=== PATIENT | female | born 1995 | race Caucasian/White ===

== ENCOUNTER 2017-04-03 18:58 | Emergency (ER) | payer SELFPAY ==
[2017-04-03] MEDS ORDERED: HYDROCODONE/ACETAMINOPHEN 5-325 MG TABLET PO ONE (19:47)
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
[2017-04-03] MEDS ORDERED: ONDANSETRON 4 MG TAB.RAPDIS PO ONE (19:51)
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
[2017-04-03] MEDS ORDERED: HYDROCODONE/ACETAMINOPHEN 5-325 MG (6 TAB/ER DISP) PO PRN (20:44)
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
[2017-04-03 21:15] VITALS: BP 117/74
== END 2017-04-03 21:13 | disposition home or self-care (01) ==
LOC: ER 18:58
DX: S09.90XA Unspecified injury of head, initial encounter (principal); Y04.2XXA Assault by strike against or bumped into by another person, initial encounter; R11.2 Nausea with vomiting, unspecified
CPT/HCPCS: 99284; 70450; S0119

== ENCOUNTER 2018-03-17 23:04 | Emergency (ER) | payer SELFPAY ==
[2018-03-18] MEDS ORDERED: HYDROXYZINE PAMOATE 25 MG CAPSULE PO ONE (01:27)
--- NOTE | 2018-03-18 01:29 | ER Document Report ---
HPI - HPI Time Seen by Provider: 03/18/18 01:20 Pain Level: 4 Context: Patient is a 22-year-old female who presents to the emergency department with a chief complaint of not being able to breathe, and feeling nauseous. She states that she does have anxiety and that she is not on any of her anxiety medications. She was taking Xanax and Vistaril, but has not taken them recently because she does not have insurance. She states that this does feel like her normal anxiety attack. - REPRODUCTIVE Reproductive: DENIES: : Past Medical History - Social History Smoking Status: Never Smoker Frequency of alcohol use: None Drug Abuse: None Lives with: Family Family History: Reviewed & Not Pertinent - Past Medical History Cardiac Medical History: Denies: Hx Coronary Artery Disease, Hx Heart Attack, Hx Hypertension Pulmonary Medical History: Denies: Hx Asthma, Hx Bronchitis, Hx COPD, Hx Pneumonia Neurological Medical History: Denies: Hx Cerebrovascular Accident, Hx Seizures Renal/ Medical History: Denies: Hx Peritoneal Dialysis Musculoskeletal Medical History: Denies Hx Arthritis Psychiatric Medical History: Reports: Hx Anxiety, Hx Attention Deficit Hyperactivity Disorder, Hx Bipolar Disorder, Hx Depression Past Surgical History: Reports: Hx Oral Surgery - Third molars have been removed. Denies: Hx Pacemaker - Immunizations Immunizations up to date: Yes Hx Diphtheria, Pertussis, Tetanus Vaccination: No Vertical Provider Document - INFECTION CONTROL TRAVEL OUTSIDE OF THE [place] IN LAST 30 DAYS: No - HEENT HEENT: Atraumatic - NECK Neck: Normal Inspection - RESPIRATORY Respiratory: Breath Sounds Normal - CARDIOVASCULAR Cardiovascular: Regular Rate, Regular Rhythm - GI/ABDOMEN Gastrointestinal: Abdomen Soft - MUSCULOSKELETAL/EXTREMETIES Musculoskeletal/Extremeties: FROM - NEURO Level of Consciousness: Awake, Alert, Appropriate - DERM Integumentary: Warm, Dry Course - Re-evaluation Re-evalutation: 03/18/18 01:45 During patient's exam, it is clinically apparent that the patient is having an anxiety attack. She does not make any eye contact when asked questions, appears nervous, and appears to be having a panic attack. She stated that when she was on Vistaril she never had any of these symptoms. She is currently not on any medication for her anxiety. I have discussed with her that she will be given Vistaril here in the emergency department and given a prescription for the medication. She is in agreement with this plan. As soon as her EKG is resulted, she will be stable for discharge. 03/18/18 02:15 The patient's EKG is normal. It is sinus rhythm with a heart rate of 88. Verbal discharge instructions were given to the patient. They verbalized understanding. They are stable for discharge. - Vital Signs Vital signs: Temp Pulse Resp BP Pulse Ox 98.4 F 81 19 120/75 100 03/17/18 23:25 03/17/18 23:25 03/17/18 23:25 03/17/18 23:25 03/17/18 23:25 - EKG Interpretation by Me Additional EKG results interpreted by me: 03/18/18 02:15 Sinus rhythm. Rate 88. CA 128; QRS 92; QT 368; QTC 446. Discharge - Discharge Clinical Impression: Anxiety Vomiting Qualifiers: Vomiting type: unspecified Vomiting Intractability: non-intractable Nausea presence: unspecified Qualified Code(s): R11.10 - Vomiting, unspecified Condition: Stable Disposition: HOME, SELF-CARE Additional Instructions: You were seen today in the emergency department for vomiting and an anxiety attack. Since you have been off your Vistaril, you have been prescribed Vistaril here in the emergency department. Please see your primary care doctor for further follow-up, and also see mental health to get you back on your Vistaril, since it helped controlling her anxiety when you were on it. You have also been given Zofran, medication for nausea. You may take this medication every 6 hours as needed for nausea and vomiting. If you develop a fever greater than 100.4 F, have worsening symptoms, or have any symptoms that are worrisome to you, please return to the emergency department. Prescriptions: Hydroxyzine Pamoate [Vistaril 25 mg Capsule] 25 mg PO DAILY #30 capsule Referrals: GALLITO SHAIKH PA-C [NO LOCAL MD] - Follow up in 3-5 days
[2018-03-18] MEDS ORDERED: ONDANSETRON 4 MG TAB.RAPDIS PO ONE (01:30)
[2018-03-18] MEDS ORDERED: ONDANSETRON ODT 4 MG TAB (6 TAB/ER DISP) PO PRN (02:01)
[2018-03-18 03:52] VITALS: BP 142/88
--- NOTE | 2018-03-18 17:25 | EKG REPORT ---
SEVERITY:- ABNORMAL ECG - SINUS RHYTHM LEFT ATRIAL ABNORMALITY BORDERLINE LEFT AXIS DEVIATION : Confirmed by: Florina Cervantes MD 18-Mar-2018 17:24:39
== END 2018-03-18 02:20 | disposition home or self-care (01) ==
LOC: ER 23:04
DX: F41.9 Anxiety disorder, unspecified (principal); T42.4X6A Underdosing of benzodiazepines, initial encounter; T43.596A Underdosing of other antipsychotics and neuroleptics, initial encounter; Z91.120 Patient's intentional underdosing of medication regimen due to financial hardship; Z91.14 Patient's other noncompliance with medication regimen; R11.2 Nausea with vomiting, unspecified
CPT/HCPCS: 93005; 99284; 93010; S0119